=== PATIENT | male | born 1960 | race African-American/Black ===

== ENCOUNTER 2018-12-20 16:20 | Outpatient (CLI) | payer OTHER ==
--- NOTE | 2018-12-20 16:41 | RAD ---
Exam: XR Shoulder Lt 3 View STANDARD HISTORY: Left shoulder pain. History of acromioclavicular joint separation surgery. COMPARISON: None FINDINGS: There is mild widening of the left acromioclavicular distance as well as mild widening of the coracoc lavicular distance. These findings may be related to patient's history of prior acromioclavicular joint separation. No acute fracture or dislocation is seen on this exam. No other osseous abnormality . IMPRESSION: 1. No acute osseous abnormality left shoulder. 2. Findings likely attributable to patient's history of prior left acromioclavicular joint separation .
--- NOTE | 2018-12-20 16:57 | RAD ---
EXAM: XR Cerv Sp Ap Lat STANDARD PROVIDED CLINICAL HISTORY: Neck pain COMPARISON: None FINDINGS: Cervical alignment appears normal. Vertebral body heights appear preserved. Disc space narrowing and endplate degenerative changes are seen C5-6 and C6-7 with osteophyte formation arising from the anterior aspects of C3-C7. No evidence for fracture. No prevertebral soft tissue swelling apparent. V isualized lung apices appear clear. IMPRESSION: Cervical degenerative change as described.
--- NOTE | 2018-12-20 17:10 | RAD ---
XR Ankle Lt 3 View STANDARD HISTORY: Ankle pain. No history of injury. COMPARISON: None. FINDINGS: There are small spurs involving the anterior and posterior margins of the tibia. No evidenc e of any significant joint space narrowing. No joint effusion or fracture. IMPRESSION: Mild arthritic changes of the ankle.
== END 2018-12-20 16:21 | disposition home or self-care (01) ==
LOC: NAV RAD 16:20
PROVIDERS: ATTEND Internal Medicine
DX: M25.512 Pain in left shoulder (principal); M25.572 Pain in left ankle and joints of left foot; M54.2 Cervicalgia; M19.072 Primary osteoarthritis, left ankle and foot; M47.812 Spondylosis without myelopathy or radiculopathy, cervical region
CPT/HCPCS: 72040